=== PATIENT | male | born 1940 | race Caucasian/White ===

== ENCOUNTER → 2025-01-13 09:42 | Outpatient (REF) | payer MEDICARE, SELFPAY ==
[2025-01-13 10:39] LABS: INR 2.19; PT 24.8 Sec (11.4-14.6)
== END ==
LOC: REG 09:42
PROVIDERS: ATTENDING PHYSICIAN Internal Medicine Cardiovascular Disease; FAMILY PHYSICIAN Internal Medicine
DX: I48.0 Paroxysmal atrial fibrillation (principal)
CPT/HCPCS: 36415; 85610

== ENCOUNTER → 2025-04-19 12:22 | Outpatient (REF) | payer MEDICARE, SELFPAY ==
[2025-04-19 13:13] LABS: PT 35.6 Sec (11.4-14.6)
== END ==
LOC: REG 12:22
PROVIDERS: ATTENDING PHYSICIAN Internal Medicine Cardiovascular Disease
DX: I48.0 Paroxysmal atrial fibrillation (principal)
CPT/HCPCS: 36415; 85610